=== PATIENT | male | born 1955 | race Caucasian/White ===

== ENCOUNTER → 2019-04-06 06:59 | Outpatient (CLI) | payer MEDICARE, OTHER | END | disposition home or self-care (01) | LOC: D.MRI 06:59 | PROVIDERS: ATTEND Orthopaedic Surgery | DX: M75.122 Complete rotator cuff tear or rupture of left shoulder, not specified as traumatic (principal) ==

== ENCOUNTER → 2020-06-01 15:32 | Outpatient (CLI) | payer MEDICARE, OTHER | END | disposition home or self-care (01) | LOC: D.US 15:30 | PROVIDERS: ATTEND Family Medicine | DX: R60.0 Localized edema (principal) ==